=== PATIENT | female | born 1960 | race Caucasian/White ===

== ENCOUNTER 2020-06-20 09:16 | Outpatient (CLI) | payer OTHER, SELFPAY ==
--- NOTE | ~2020-06-20 | DEXA_ITS ---
Bone Density Report Name: Geovanna Mccarthy Age: 60 Sex: Female Ethnicity: White Date of : 1960 Indication: postmenopausal; hysterectomy; Referring Provider: Alex, Constanza Collado Study: Bone densitometry was performed. Exam Date: June 20, 2020 Accession number: [id number] Bone Density: Region BMD T-score Z-score Classification AP Spine (L1, L3, L4) 0.851 -1.8 -0.2 Osteopenia Femoral Neck (Left) 0.578 -2.4 -1.1 Osteopenia Total Hip (Left) 0.735 -1.7 -0.6 Osteopenia Total Hip Bilateral Avg 0.728 -1.8 -0.7 Osteopenia Femoral Neck (Right) 0.539 -2.8 -1.4 Osteoporosis Total Hip (Right) 0.720 -1.8 -0.7 Osteopenia World Health Organization criteria for BMD impression classify patients as: Normal (T-score at or above -1.0), Osteopenia (T-score between -1.0 and -2.5), or Osteoporosis (T-score at or below -2.5). 10-year Fracture Risk: FRAX not reported because: Some T-score for Spine Total or Hip Total or Femoral Neck at or below -2.5 Previous Exams: Region Exam Age BMD T-score BMD Change BMD Change Date g/cm2 vs Baseline vs Previous AP Spine(L1, L3, L4) 06/20/2020 60 0.851 -1.8 -0.029(-3.3%)# -0.142(-14.3%) 08/12/2016 56 0.993 -0.5 0.112(12.7%)# -0.014(-1.4%)# 07/12/2010 50 1.007 -0.4 0.126(14.4%)* 0.126(14.4%)* 09/27/2005 45 0.881 -1.6 Total Hip(Left) 06/20/2020 60 0.735 -1.7 -0.050(-6.3%)# -0.114(-13.4%) 08/12/2016 56 0.849 -0.8 0.064(8.2%)# -0.055(-6.1%)# 07/12/2010 50 0.904 -0.3 0.119(15.2%)* 0.119(15.2%)* 09/27/2005 45 0.785 -1.3 Total Hip(Right) 06/20/2020 60 0.720 -1.8 -0.056(-7.3%)# -0.128(-15.1%) 08/12/2016 56 0.848 -0.8 0.072(9.2%)# -0.013(-1.5%)# 07/12/2010 50 0.861 -0.7 0.085(10.9%)* 0.085(10.9%)* 09/27/2005 45 0.777 -1.4 *Denotes significance at 95% confidence level, LSC for AP Spine = 0.022 g/cm2, LSC for Total Hip = 0.027 g/cm2 Clinical Information Provided by Patient: Has the following medical conditions: Hysterectomy Patient maximum height was 61.5 No regular weight bearing exercise Does not regularly consume dairy products Drinks caffeinated beverages Onset of menses at age 9 Number of children 2 Impression: The patient has osteoporosis, based on the Right Femoral Neck T-score. The BMD for the AP Spine(L1, L3, L4) decreased, changing by -14.3% since the last DXA exam. The BMD for the Total Hip(Left) decreased, changing by -13.4% since the last DXA exam. The
--- NOTE | ~2020-06-20 | MM_ITS ---
EXAMINATION: MM screening barbara BI w armando HISTORY: Screening TECHNIQUE: Craniocaudal and mediolateral oblique 3-D tomosynthesis images were obtained and synthetic 2-D images were generated. CAD analysis was submitted and interpreted. COMPARISON: Comparison to multiple prior studies sequentially, with oldest reviewed study dated 07/11. BREAST PARENCHYMAL COMPOSITION: There are scattered areas of fibroglandular density. FINDINGS: There is no evidence of suspicious mass, calcification, or architectural distortion to sugg est malignancy in either breast. There has been no suspicious interval change. IMPRESSION: 1. No mammographic evidence of malignancy. 2. Recommend routine screening mammography in one year. BI-RADS Category 1: Negative Reviewed, dictated and finalized at location A. IAL EDUCATION CLASSROOM AIDE
== END 2020-06-20 09:17 | disposition home or self-care (01) ==
LOC: ANHIMG 09:20
PROVIDERS: PCP Nurse Practitioner Family; Visit Provider Nurse Practitioner Family
DX: Z12.31 Encounter for screening mammogram for malignant neoplasm of breast (principal); Z78.0 Asymptomatic menopausal state; M85.88 Other specified disorders of bone density and structure, other site; M85.852 Other specified disorders of bone density and structure, left thigh; M85.851 Other specified disorders of bone density and structure, right thigh; M81.0 Age-related osteoporosis without current pathological fracture
CPT/HCPCS: 77063; 77067; 77080

== ENCOUNTER 2021-09-27 01:50 | Day surgery (SDC) | payer OTHER, SELFPAY ==
[2021-09-22 15:58] VITALS: BMI 23.5
[2021-09-27 08:33] VITALS: BP 129/80; PULSE 73; RESP 16; TEMP 35.8; O2SAT 100; BMI 23.3
[2021-09-27] MEDS: LACTATED RINGERS 1,000 ML 150 ML IV CONT (08:41)
--- NOTE | 2021-09-27 08:59 | WPDGICN ---
Assessment and Plan Assessment and plan (1) Encounter for screening colonoscopy: Code(s): Z12.11 - Encounter for screening for malignant neoplasm of colon Status: Acute Assessment and Plan: Patient presents for screening colonoscopy. Last colonoscopy 10 years ago was unremarkable. Plan is for surveillance exam at this time. Further recommendations will be given after endoscopy. GI Consult Note Consult date/time: 09/27/21 08:59 HPI: Geovanna Mccarthy is a 61 year old female Presents for screening colonoscopy. Patient's current weight appetite bowel movements are normal. She denies abdominal pain. She has had no bleeding. Patient reports last colonoscopy 10 years ago was unremarkable. Family history is significant her brother has had colon polyps. Review of Systems Review of Systems: All systems reviewed & are unremarkable except as noted in HPI and below PMFSH Past Medical History Medical History (Updated 09/27/21 @ 09:00 by Seb Canales MD) Anxiety CAD (coronary artery disease) History of cardioversion History of heart attack Hyperlipidemia Hypertension Surgical History Surgical History (Updated 09/24/21 @ 15:41 by Jesse Brooks DO) History of coronary artery stent placement x2 History of hysterectomy Social History Social History Smoking packs per day: 1.5 Smoking cigarettes per day: 30.0 Years smoked: 30 Smoking pack-years: 45.00 Smoking status: Former smoker Tobacco type: cigarettes Alcohol intake: current Drinks per week: 14 Alcohol use details: WINE Substance use: never Substance use type: does not use Living arrangements: with family Spiritual care concerns: No Meds Home Medications and Allergies Home Medications Medication Instructions Recorded Confirmed Type alendronate 70 mg PO WEEKLY 09/22/21 09/27/21 History amlodipine 10 mg PO DAILY 09/22/21 09/22/21 History aspirin [Adult Aspirin] 81 mg PO DAILY 09/22/21 09/27/21 History atorvastatin 80 mg PO DAILY 09/22/21 09/27/21 History estradiol 1 appful VAGINAL WEEKLY 09/22/21 09/27/21 History lorazepam 0.5 mg PO BID PRN 09/22/21 09/27/21 History nitroglycerin 0.4 mg SUBLINGUAL PRN PRN 09/22/21 09/27/21 History Allergies Allergy/AdvReac Type Severity Reaction Status Date / Time No Known Allergies Allergy Mild Verified 09/22/21 16:00 Vital Signs Vital Signs - 24 hr 09/27/21 08:33 Temperature 96.4 F L Pulse Rate 73 Respiratory Rate 16 Blood Pressure 129/80 Pulse Oximetry 100 Exam Narrative: Physical exam reveals patient to be alert. Vital signs stable. HEENT exam is unremarkable. Patient is anicteric. Lungs are clear to auscultation and percussion. Heart is without murmur or extra sounds. Abdominal exam bowel sounds are present soft nontender with no organomegaly. Digital external rectal exam is normal.
--- NOTE | 2021-09-27 09:00 | P.PNAN_ITS ---
Anes - Initial Pre Proc Eval Procedure: Operation Date: 09/27/21 09:30 Proposed Procedures p Screening Colonoscopy - Seb Canales MD Date/Time: 09/27/21 09:00 Surgeon: Seb Canales MD Pre Op Diagnosis: neoplasm screening Patient Data Age: 61 Gender: F Height: 1.55 m Weight: 55.9 kg Last Vital Signs Temp 96.4 F L 09/27/21 08:33 Pulse 73 09/27/21 08:33 Resp 16 09/27/21 08:33 BP 129/80 09/27/21 08:33 Pulse Ox 100 09/27/21 08:33 Allergies Allergy/AdvReac Type Severity Reaction Status Date / Time No Known Allergies Allergy Mild Verified 09/22/21 16:00 Home Medications Medication Instructions Recorded Confirmed Type alendronate 70 mg PO WEEKLY 09/22/21 09/27/21 History amlodipine 10 mg PO DAILY 09/22/21 09/22/21 History aspirin [Adult Aspirin] 81 mg PO DAILY 09/22/21 09/27/21 History atorvastatin 80 mg PO DAILY 09/22/21 09/27/21 History estradiol 1 appful VAGINAL WEEKLY 09/22/21 09/27/21 History lorazepam 0.5 mg PO BID PRN 09/22/21 09/27/21 History nitroglycerin 0.4 mg SUBLINGUAL PRN PRN 09/22/21 09/27/21 History Patient hx anesthesia problems: none Family hx anesthesia problems: none Results Review: All pre-operative results and documents have been reviewed as part of the pre-operative evaluation. [facility] Past Medical History Medical History (Updated 09/24/21 @ 15:41 by Jesse Brooks DO) Anxiety CAD (coronary artery disease) History of cardioversion History of heart attack Hyperlipidemia Hypertension Surgical History Surgical History (Updated 09/24/21 @ 15:41 by Jesse Brooks DO) History of coronary artery stent placement x2 History of hysterectomy Social History Social History Smoking packs per day: 1.5 Smoking cigarettes per day: 30.0 Years smoked: 30 Smoking pack-years: 45.00 Smoking status: Former smoker Tobacco type: cigarettes Alcohol intake: current Drinks per week: 14 Alcohol use details: WINE Substance use: never Substance use type: does not use Living arrangements: with family Spiritual care concerns: No Anes - Eval Final PreProcedure Day of Procedure 09/27/21 09:00 Patient weight: normal Heart: regular rate and rhythm Lungs: clear to auscultation Airway: Mallampati scale class II Neurological: alert and oriented Last oral intake: >/= 8 hours ASA classification: III Emergent: no Anesthetic plan: proceed Anesthesia type and monitoring: general GIVS and standard monitoring Results Review: All pre-operative results and documents have been reviewed as part of the pre-operative evaluation. Informed Consent: The patient's anesthetic plan and its attendant risks and benefits were discussed with the patient/family/POA. Questions were solicited and answers provided to the satisfaction of the patient/family/POA.
[2021-09-27 09:23] VITALS: BP 101/65; PULSE 63; RESP 21; O2SAT 100
[2021-09-27 09:33] VITALS: BP 120/73; PULSE 65; RESP 18; O2SAT 100
[2021-09-27 09:43] VITALS: BP 132/78; PULSE 63; RESP 20; O2SAT 100
== END 2021-09-27 09:57 | disposition home or self-care (01) ==
PROVIDERS: PCP Nurse Practitioner Family; Visit Provider Internal Medicine Gastroenterology
PROC: 0DJD8ZZ Inspection of Lower Intestinal Tract, Via Natural or Artificial Opening Endoscopic (ICD-10-PCS; CPT 45378; principal; 2021-09-27 09:30)
DX: Z12.11 Encounter for screening for malignant neoplasm of colon (principal); F41.9 Anxiety disorder, unspecified; I25.10 Atherosclerotic heart disease of native coronary artery without angina pectoris; E78.2 Mixed hyperlipidemia; I10 Essential (primary) hypertension; I25.2 Old myocardial infarction; Z95.5 Presence of coronary angioplasty implant and graft; Z87.891 Personal history of nicotine dependence
CPT/HCPCS: 45378; J2704; J7120

== ENCOUNTER 2023-01-28 07:47 | Outpatient (CLI) | payer OTHER, SELFPAY ==
--- NOTE | ~2023-01-28 | MM_ITS ---
EXAMINATION: MM screening barbara BI w armando HISTORY: Screening mammogram TECHNIQUE: Craniocaudal and mediolateral oblique 3-D tomosynthesis images were obtained and synthetic 2-D images were generated. CAD analysis was submitted and interpreted. COMPARISON: 06/20/2020, 04/20/2019 bilateral screening mammogram examinations BREAST PARENCHYMAL COMPOSITION: There are scattered areas of fibroglandular density. FINDINGS: There is no evidence of suspicious mass, calcification, or architectural distortion to sugg est malignancy in either breast. There has been no suspicious interval change. IMPRESSION: 1. No mammographic evidence of malignancy. 2. Recommend routine screening mammography in one year. BI-RADS Category 1: Negative Reviewed, dictated and finalized at location A.
== END 2023-01-28 07:48 | disposition home or self-care (01) ==
LOC: ANHIMG 07:50
PROVIDERS: PCP Nurse Practitioner Family; Visit Provider Nurse Practitioner Family
DX: Z12.31 Encounter for screening mammogram for malignant neoplasm of breast (principal)
CPT/HCPCS: 77063; 77067

== ENCOUNTER 2024-09-11 14:50 | Outpatient (CLI) | payer MEDICARE, SELFPAY ==
--- NOTE | ~2024-09-11 | MM_ITS ---
EXAMINATION: MM screening barbara BI w [facility] HISTORY: Screening TECHNIQUE: Craniocaudal and mediolateral oblique 3-D tomosynthesis images were obtained and synthetic 2-D images were generated. CAD analysis was submitted and interpreted. COMPARISON: Comparison to multiple prior studies sequentially, with oldest reviewed study dated 01/10. BREAST PARENCHYMAL COMPOSITION: Not dense: There are scattered areas of fibroglandular density. FINDINGS: There is no evidence of suspicious mass, calcification, or architectural distortion to sugg est malignancy in either breast. There has been no suspicious interval change. IMPRESSION: 1. No mammographic evidence of malignancy. 2. Recommend routine screening mammography in one year. BI-RADS Category 1: Negative Reviewed, dictated and finalized at location B.
--- NOTE | ~2024-09-11 | DEXA_ITS ---
Bone Density Report Name: BRANDT SAINZ Age: 64 Sex: Female Ethnicity: White Date of : 1960 Indication: osteopenia; monitoring treatment; hysterectomy; Referring Provider: JORGE A CALDERON Study: Bone densitometry was performed. Exam Date: September 11, 2024 Accession number: [id number] Bone Density: Region BMD T-score Z-score Classification AP Spine(L1-L4) 0.975 -0.7 1.2 Normal Femoral Neck (Left) 0.606 -2.2 -0.6 Osteopenia Total Hip (Left) 0.811 -1.1 0.2 Osteopenia Femoral Neck (Right) 0.573 -2.5 -0.9 Osteoporosis Total Hip (Right) 0.787 -1.3 0.0 Osteopenia Total Hip Mean 0.799 -1.2 0.1 Osteopenia World Health Organization criteria for BMD impression classify patients as: Normal (T-score at or above -1.0), Osteopenia (T-score between -1.0 and -2.5), or Osteoporosis (T-score at or below -2.5). 10-year Fracture Risk: FRAX not reported because: Some T-score for Spine Total or Hip Total or Femoral Neck at or below -2.5 Treated for osteoporosis Previous Exams: Region Exam Age BMD T-score BMD Change BMD Change Date g/cm2 vs Baseline vs Previous Total Hip(Left) 09/11/2024 64 0.811 -1.1 -0.038 (-4.5%) 0.076 (10.3%)* 06/20/2020 60 0.735 -1.7 -0.114 (-13.4% -0.114 (-13.4% 08/12/2016 56 0.849 -0.8 Total Hip(Right) 09/11/2024 64 0.787 -1.3 -0.062 (-7.3%) 0.066 (9.2%)* 06/20/2020 60 0.720 -1.8 -0.128 (-15.1% -0.128 (-15.1% 08/12/2016 56 0.848 -0.8 *Denotes significance at 95% confidence level, LSC for Total Hip = 0.027 g/cm2 Clinical Information Provided by Patient: Is being treated for osteoporosis Has used the following medications: Reclast (i.e. zoledronate) Has the following medical conditions: Hysterectomy Patient maximum height was 61.5 No regular weight bearing exercise Does not regularly consume dairy products Drinks caffeinated beverages Onset of menses at age 11 Number of children 2 Impression: The patient has osteoporosis, based on the Right Femoral Neck T-score. No significant bone loss was observed. Discussion: PATIENT UNDER TREATMENT WITH NO SIGNIFICANT BMD LOSS SINCE LAST EXAM. In an untreated patient, BMD typically declines with age. A lack of decline or gain is usually a sign that treatment is efficacious and fracture risk is reduced. It is important to ask patients whether they are taking their medications and to encourage continued and appropriate compliance with their osteoporosis therapies to reduce fracture risk. It is also important to review their risk factors and encourage appropriate calcium and vitamin D intakes, exercise, fall prevention and other lifestyle measures. Follow-Up: Consider a repeat BMD and Vertebral Fracture Assessment (VFA) exam in 2 years or sooner if medically necessary, to reassess this patient's status. Reported by: NORRIS on 09/11/2024 3:28:00 PM. Reviewed, dictated and finalized at location AYoung VO
--- OUTSIDE RECORDS SUMMARY | 2024-09-11 16:07 | XMS_ITS | Encounter Summary ---
Author Organization [facility] Facility Care Team Providers Care Restaurant Shift Leader Name Role Phone Kathya De La Rosa MD Primary Care Provider [phone] Michael Browning MD Unavailable [phone] Constanza Johnson NP Primary Care Provider + Encounter Details Date Type Department Care Team (Latest Contact Info) Description 02/26/2015 Orders Only [facility] CLINCONV ProviderYamel MD [address] [place] [address] Social History Tobacco Use Types Packs/Day Years Used Date Smoking Tobacco: Never Assessed Comments Unknown Sex and Gender Information Value Date Recorded Sex Assigned at Not on file Legal Sex Female 1:14 AM PINKED EDGE SEWING MACHINE OPERATOR Gender Identity Not on file Sexual Orientation Not on file documented as of this encounter Plan of Treatment Not on file documented as of this encounter Procedures Procedure Name Priority Date/Time Associated Diagnosis Comments CARDIOLOGY REPORT 06/23/2016 12: 00 AM PINKED EDGE SEWING MACHINE OPERATOR CARDIOLOGY REPORT 06/23/2016 12: 00 AM PINKED EDGE SEWING MACHINE OPERATOR documented in this encounter Results * CARDIOLOGY REPORT (06/23/2016 12:00 AM PINKED EDGE SEWING MACHINE OPERATOR) Anatomical Region Laterality Modality Other Narrative 06/23/2016 12:00 AM PINKED EDGE SEWING MACHINE OPERATOR Ordered by an unspecified provider. Historical Provider [facility] Final Result * CARDIOLOGY REPORT (06/23/2016 12:00 AM PINKED EDGE SEWING MACHINE OPERATOR) Anatomical Region Laterality Modality Other Narrative 06/23/2016 12:00 AM PINKED EDGE SEWING MACHINE OPERATOR Ordered by an unspecified provider. us Historical Provider [facility] Final Result documented in this encounter Visit Diagnoses Not on filedocumented in this encounter Care Teams Restaurant Shift Leader Relationship Specialty Start Date End Date Kathya De La Rosa MD [address] [place] [address] PCP - General 05/28/09 09/15/21 Constanza Johnson NP [address] [place] [address] [id number] PCP - General Nurse Practitioner 09/16/21 Michael rBowning MD [address] [place] [address] [id number] Consulting Physician Cardiovascular Disease 04/15/19 documented as of this encounter
--- OUTSIDE RECORDS SUMMARY | 2024-09-11 16:07 | XMS_ITS | CONTINUITY OF CARE DOCUMENT ---
Author Name kaylee page Address Unknown Organization [facility] Office Address [address] [place] [address] [address] [place] [address] Phone [phone] Care Team Providers Care Stone Engraver Name Role Phone Zhao CHAVEZ, Byron Unavailable [phone] MELISSA SERRATO Unavailable INSURANCE PROVIDERS Payer name Policy type / Coverage type [place] red green party ID [facility] [id number] Other [id number]
--- OUTSIDE RECORDS SUMMARY | 2024-09-11 16:07 | XMS_ITS | Encounter Summary ---
Author Organization [facility] Care Team Providers Care Chief Radiologic Technologist Name Role Phone Kathya De La Rosa MD Primary Care Provider [phone] Michael Browning MD Unavailable [phone] Constanza Johnson NP Primary Care Provider + Encounter Details Date Type Department Care Team (Latest Contact Info) Description 03/01/2015 Orders Only [facility] CLINCONV ProviderYamel MD [address] [place] [address] Social History Tobacco Use Types Packs/Day Years Used Date Smoking Tobacco: Never Assessed Comments Unknown Sex and Gender Information Value Date Recorded Sex Assigned at Not on file Legal Sex Female 1:14 AM MEMS DEVICE SCIENTIST Gender Identity Not on file Sexual Orientation Not on file documented as of this encounter Plan of Treatment Not on file documented as of this encounter Procedures Procedure Name Priority Date/Time Associated Diagnosis Comments CARDIOLOGY REPORT 06/23/2016 12: 00 AM MEMS DEVICE SCIENTIST documented in this encounter Results * CARDIOLOGY REPORT (06/23/2016 12:00 AM MEMS DEVICE SCIENTIST) Anatomical Region Laterality Modality Other Narrative 06/23/2016 12:00 AM MEMS DEVICE SCIENTIST Ordered by an unspecified provider. Historical Provider [facility] Final Result documented in this encounter Visit Diagnoses Not on filedocumented in this encounter Care Teams Chief Radiologic Technologist Relationship Specialty Start Date End Date Kathya De La Rosa MD [address] [address] PCP - General 05/28/09 09/15/21 Constanza Johnson NP [address] [address] PCP - General Nurse Practitioner 09/16/21 Michael Browning MD [address] [address] Consulting Physician Cardiovascular Disease 04/15/19 documented as of this encounter
--- OUTSIDE RECORDS SUMMARY | 2024-09-11 16:07 | XMS_ITS | Encounter Summary ---
Author Organization [facility] Facility Care Team Providers Care Salesperson Neckties Name Role Phone Kathya De La Rosa MD Primary Care Provider [phone] Michael Browning MD Unavailable [phone] Constanza Johnson NP Primary Care Provider + Encounter Details Date Type Department Care Team (Latest Contact Info) Description 02/27/2015 Orders Only [facility]G CLINCONV ProviderYamel MD [address] [place] [address] Social History Tobacco Use Types Packs/Day Years Used Date Smoking Tobacco: Never Assessed Comments Unknown Sex and Gender Information Value Date Recorded Sex Assigned at Not on file Legal Sex Female 1:14 AM AUTO CLEANER Gender Identity Not on file Sexual Orientation Not on file documented as of this encounter Plan of Treatment Not on file documented as of this encounter Procedures Procedure Name Priority Date/Time Associated Diagnosis Comments CARDIOLOGY REPORT 06/23/2016 12: 00 AM AUTO CLEANER documented in this encounter Results * CARDIOLOGY REPORT (06/23/2016 12:00 AM AUTO CLEANER) Anatomical Region Laterality Modality Other Narrative 06/23/2016 12:00 AM AUTO CLEANER Ordered by an unspecified provider. Historical Provider [facility] Final Result documented in this encounter Visit Diagnoses Not on filedocumented in this encounter Care Teams Salesperson Neckties Relationship Specialty Start Date End Date Kathya De La Rosa MD [address] [address] PCP - General 05/28/09 09/15/21 Constanza Johnson NP [address] [address] PCP - General Nurse Practitioner 09/16/21 Michael Browning MD [address] [address] Consulting Physician Cardiovascular Disease 04/15/19 documented as of this encounter
--- OUTSIDE RECORDS SUMMARY | 2024-09-11 16:07 | XMS_ITS | Encounter Summary ---
Author Organization [facility] Facility Care Team Providers Care Inspector Government Property Name Role Phone Kathya De La Rosa MD Primary Care Provider [phone] Michael Browning MD Unavailable [phone] Constanza Johnson NP Primary Care Provider + Encounter Details Date Type Department Care Team (Latest Contact Info) Description 03/26/2015 Orders Only [facility] CLINCONV ProviderYamel MD [address] [place] [address] Social History Tobacco Use Types Packs/Day Years Used Date Smoking Tobacco: Never Assessed Comments Unknown Sex and Gender Information Value Date Recorded Sex Assigned at Not on file Legal Sex Female 1:14 AM BARK FITTER Gender Identity Not on file Sexual Orientation Not on file documented as of this encounter Plan of Treatment Not on file documented as of this encounter Procedures Procedure Name Priority Date/Time Associated Diagnosis Comments CARDIOLOGY REPORT 06/23/2016 12: 00 AM BARK FITTER documented in this encounter Results * CARDIOLOGY REPORT (06/23/2016 12:00 AM BARK FITTER) Anatomical Region Laterality Modality Other Narrative 06/23/2016 12:00 AM BARK FITTER Ordered by an unspecified provider. Historical Provider [facility] Final Result documented in this encounter Visit Diagnoses Not on filedocumented in this encounter Care Teams Inspector Government Property Relationship Specialty Start Date End Date Kathya De La Rosa MD [address] [address] PCP - General 05/28/09 09/15/21 Constanza Johnson NP [address] [address] PCP - General Nurse Practitioner 09/16/21 Michael Browning MD [address] [address] Consulting Physician Cardiovascular Disease 04/15/19 documented as of this encounter
--- OUTSIDE RECORDS SUMMARY | 2024-09-11 16:07 | XMS_ITS | Clinical Summary ---
Author Organization [facility] at [facility] Office Center Address [address] [place] [address] Care Team Providers Care Healthcare Consulting Manager Name Role Phone Michael Browning MD Unavailable [phone] Constanza Johnson NP Primary Care Provider + Allergies No known active allergies Medications LORazepam (ATIVAN) 0.5 mg tablet TK 1 T PO BID PRN ONLY 0 09/03/2018 Active aspirin 81 mg enteric coated tablet Take 1 tablet (81 mg total) by mouth daily Active alendronate (FOSAMAX) 70 mg tablet Take 1 tablet (70 mg total) by mouth every 7 days Take in the morning with a full glass of water, on an empty stomach, and do not take anything else by mouth or lie down for the next 30 min. Active amLODIPine (NORVASC) 10 mg tablet TAKE 1 TABLET DAILY 90 tablet 1 07/26/2021 Active rosuvastatin (CRESTOR) 40 mg tablet Take 1 tablet (40 mg total) by mouth daily Active nitroglycerin (NITROSTAT) 0.[address] 1 tablet (0.4 mg total) under the tongue every 5 (five) minutes as needed for chest pain 25 tablet 04/17/2024 Active Active Problems Problem Noted Date Diagnosed Date Varicose veins of leg with pain, right Assessment & Plan (10/12/2023 1:47 PM CDT): Status post right GSV ablation and stab phlebectomies, doing well since procedure. No evidence of deep vein thrombosis. Can follow up as needed. I have recommended p.r.n. compression therapy. Acute sinusitis 08/02/2023 Dehydration 08/02/2023 Disorder of tongue 08/02/2023 Excessive cerumen in ear canal 08/02/2023 Menopausal syndrome 08/02/2023 Sprain of ankle 08/02/2023 Vitamin B deficiency 08/02/2023 History of myocardial infarction 05/15/2023 Loss of hair 05/15/2023 Varicose veins of both lower extremities with pa in 03/23/2023 Assessment & Plan (08/04/2023 11:57 AM MINES INSPECTOR): Plan for right EVLT with stab phlebectomies. Discussed the procedure with the patient answered all questions at this time. Discussed all the potential risks associated. She is agreeable wishes to proceed. Assessment & Plan (03/23/2023 2:11 PM CDT): Impression: Patient complains of throbbing, heaviness, and fatigue to bilateral lower extremities associated with varicose veins. She denies any open ulcerations or symptoms suggestive of claudication. And has bulky varicosities to bilateral lower extremities. Patient does not utilize compression therapy at this time. Plan: Recommend for grade compression stockings 20 30 mmHg. Prescription given to patient. -we will have patient follow-up in 2 months for re-evaluation with bilateral venous reflux in our [place] office. Muscle pain 03/14/2023 Nasal congestion 03/14/2023 Hyperkalemia 09/20/2022 Lesion of oral mucosa 08/04/2022 Upper respiratory infection 08/04/2022 Acute urinary tract infection 03/14/2022 Dysuria 10/15/2020 Chest pain 09/29/2020 Osteoporosis 06/22/2020 Anxiety 08/15/2019 SVT (supraventricular tachycardia) 07/30/2019 Assessment & Plan (09/24/2020 3:50 PM CDT): Remotely successfully ablated Assessment & Plan (07/30/2019 3:12 PM MINES INSPECTOR): Remotely ablated no evidence of recurrence. Mixed hyperlipidemia 07/30/2019 Assessment & Plan (03/23/2023 2:12 PM CDT): Impression: Chronic stable. Plan: Continue Lipitor Assessment & Plan (09/24/2020 3:50 PM CDT): No recent lipid panels. Will check with primary. May be a candidate for Repatha Assessment & Plan (07/30/2019 3:12 PM MINES INSPECTOR): Continue atorvastatin. Essential hypertension 07/30/2019 Assessment & Plan (03/23/2023 2:12 PM CDT): Impression: Chronic stable. Plan: Continue amlodipine Assessment & Plan (09/24/2020 3:50 PM CDT): Well controlled Assessment & Plan (07/30/2019 3:13 PM MINES INSPECTOR): States taking meds. Will increase amlodipine to 10 mg daily. 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 If remain high will make additional adjustments. Will get outside labs. Coronary artery disease of n ative artery of [place] heart with stable angina pectoris 07/30/2019 Assessment & Plan (09/24/2020 3:49 PM CDT): No signs of new problems. Continue aspirin Brilinta blood pressure control and Lipitor Assessment & Plan (07/30/2019 3:12 PM MINES INSPECTOR): Continues to will do well. Continue aspirin and Brilinta and Imdur. Thumb pain 02/23/2018 Osteopenia 01/25/2018 History of total hysterectomy 01/09/2018 Coronary angioplasty status 07/13/2016 Non compliance w medication regimen 01/27/2016 Immunizations Immunization Administration Dates Next Due Tdap 11/27/2020 Surgical History Surgery Date Site/Laterality Comments CHOLECYSTECTOMY HYSTERECTOMY SECTION PLASTIC SURGERY CARDIAC ELECTROPHYSIOLOGY ST UDY AND ABLATION 05/29/2014 - 05/28/2015 Medical History Medical History Date Comments Benign essential HTN Hyperlipidemia Heart attack (HCC) SVT (supraventricular tachycardia) CAD (coronary artery disease) Osteoporosis Social History Tobacco Use Types Packs/Day Years Used Date Smoking Tobacco: Former Smokeless Tobacco: Never Tobacco Cessation:Counseling Given: Not Answered Comments Unknown Sex and Gender Information Value Date Recorded Sex Assigned at Not on file Legal Sex Female 1:14 AM MINES INSPECTOR Gender Identity Not on file Sexual Orientation Not on file Obstetrics History Last Filed Vital Signs Vital Sign Reading Time Taken Comments Blood Pressure 118/72 04/17/2024 3:57 PM MINES INSPECTOR Pulse 71 04/17/2024 3:57 PM MINES INSPECTOR Temperature 36.3 C (97.3 F) 09/24/2020 3:30 PM CDT Respiratory Rate - - Oxygen Saturation 99% 04/17/2024 3:57 PM MINES INSPECTOR Inhaled Oxygen Concentration - - Weight 59.5 kg (131 lb 3.2 oz) 04/17/2024 3:57 P M MINES INSPECTOR Height 154.9 cm (5' 0.98 ) 04/17/2024 3:57 PM CS T Body Mass Index 24.8 04/17/2024 3:57 PM MINES INSPECTOR Plan of Treatment Health Maintenance Due Date Last Done Comments Breast Cancer Screening-Mammogram 1958 Colon Cancer Screening-Colonoscopy 1958 Depression Screening 1958 Fall Risk Assessment 1958 Hepatitis C Screening 1958 Osteoporosis Screening-Bone Density Scan 1958 Hepatitis B Screening 1976 Pneumococcal vaccine 65+ (1 of 2 - PCV) 1977 Zoster Vaccine (1 of 2) 2008 Well Visit 65+ 2023 Covid-19 Vaccine ( season) 2024, 01/22/2021 Influenza Vaccine (#1) 2024 DTaP/Tdap/Td Vaccine (2 - Td or Tdap) 11/27/203006/2020 Insurance [facility] MEDICARE ADVANTAGE Care Teams Healthcare Consulting Manager Relationship Specialty Start Date End Date Constanza Johnson NP PCP - General Nurse Practitioner 09/16/21 Michael Browning MD Consulting Physician Cardiovascular Disease 04/15/19
--- OUTSIDE RECORDS SUMMARY | 2024-09-11 16:07 | XMS_ITS | Referral Summary ---
Author Organization [facility] at [facility] Office Center Address [address] [place] [address] Care Team Providers Care Architect In Training Name Role Phone Michael Browning MD Unavailable [phone] Constanza Johnson NP Primary Care Provider + [...] 03/23/2023 Assessment & Plan (08/04/2023 11:57 AM BLENDING TANK TENDER HELPER): Plan for right EVLT with stab phlebectomies. [...] re-evaluation with bilateral venous reflux in our [place] office. Muscle pain 03/14/2023 Nasal congestion 03/14/2023 Hyperkalemia 09/20/2022 Lesion of oral mucosa 08/04/2022 Upper respiratory infection 08/04/2022 Acute urinary tract infection 03/14/2022 Dysuria 10/15/2020 Chest pain 09/29/2020 Osteoporosis 06/22/2020 Anxiety 08/15/2019 SVT (supraventricular tachycardia) 07/30/2019 Assessment & Plan (09/24/2020 3:50 PM CDT): Remotely successfully ablated Assessment & Plan (07/30/2019 3:12 PM BLENDING TANK TENDER HELPER): Remotely ablated no evidence of recurrence. Mixed hyperlipidemia 07/30/2019 Assessment & Plan (03/23/2023 2:12 PM CDT): Impression: Chronic stable. Plan: Continue Lipitor Assessment & Plan (09/24/2020 3:50 PM CDT): No recent lipid panels. Will check with primary. May be a candidate for Repatha Assessment & Plan (07/30/2019 3:12 PM BLENDING TANK TENDER HELPER): Continue atorvastatin. Essential hypertension 07/30/2019 Assessment & Plan (03/23/2023 2:12 PM CDT): Impression: Chronic stable. Plan: Continue amlodipine Assessment & Plan (09/24/2020 3:50 PM CDT): Well controlled Assessment & Plan (07/30/2019 3:13 PM BLENDING TANK TENDER HELPER): States taking meds. Will increase amlodipine to 10 mg daily. 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 If remain high will make additional adjustments. Will get outside labs. Coronary artery disease of n ative artery of [place] heart with stable angina pectoris 07/30/2019 Assessment & Plan (09/24/2020 3:49 PM CDT): No signs of new problems. Continue aspirin Brilinta blood pressure control and Lipitor Assessment & Plan (07/30/2019 3:12 PM BLENDING TANK TENDER HELPER): Continues to will do well. Continue aspirin and Brilinta and Imdur. Thumb pain 02/23/2018 Osteopenia 01/25/2018 History of total hysterectomy 01/09/2018 Coronary angioplasty status 07/13/2016 Non compliance w medication regimen 01/27/2016 Immunizations Immunization Administration Dates Next Due Tdap 11/27/2020 Social History Tobacco Use Types Packs/Day Years Used Date Smoking Tobacco: Former Smokeless Tobacco: Never Tobacco Cessation:Counseling Given: Not Answered Comments Unknown Sex and Gender Information Value Date Recorded Sex Assigned at Not on file Legal Sex Female 1:14 AM BLENDING TANK TENDER HELPER Gender Identity Not on file Sexual Orientation Not on file Last Filed Vital Signs Vital Sign Reading Time Taken Comments Blood Pressure 118/72 04/17/2024 3:57 PM BLENDING TANK TENDER HELPER Pulse 71 04/17/2024 3:57 PM BLENDING TANK TENDER HELPER Temperature 36.3 C (97.3 F) 09/24/2020 3:30 PM CDT Respiratory Rate - - Oxygen Saturation 99% 04/17/2024 3:57 PM BLENDING TANK TENDER HELPER Inhaled Oxygen Concentration - - Weight 59.5 kg (131 lb 3.2 oz) 04/17/2024 3:57 P M BLENDING TANK TENDER HELPER Height 154.9 cm (5' 0.98 ) 04/17/2024 3:57 PM CS T Body Mass Index 24.8 04/17/2024 3:57 PM BLENDING TANK TENDER HELPER Plan of Treatment Not on file Insurance [facility] MEDICARE ADVANTAGE Care Teams Architect In Training Relationship Specialty Start Date End Date Constanza Johnson NP PCP - General Nurse Practitioner 09/16/21 Michael Browning MD Consulting Physician Cardiovascular Disease 04/15/19
--- OUTSIDE RECORDS SUMMARY | 2024-09-11 16:07 | XMS_ITS | Data Portability ---
Author Organization [facility], Main Office Address [address] [place] [address] Care Team Providers Care Technical Business Systems Analyst Name Role Phone DWAYNE MEJIA Network Intelligence Analyst Assessment Encounter Date Assessment Date Assessment LastModified by Organization Details LastModified Time 03/14/2023 03/14/2023 D/w pt about her findings and further plan of care. Meds as directed. OTC symptomatic Rx explained in detail. Very good liquid intake explained. Proper hand hygiene explained. Educated about alarming symptoms to monitor at home and call us back Or get checked in ED if any concerns. F/u as directed. [email or web address] Not available 03/14/2023 14:08:39 Plan of Treatment Reminders Order Date Submit Date Provider Last Modified By Organization Details Last Modified Time Details Appointments None recorded. Lab TSH, serum or plasma [address] (Lab), [address] [place], [address], 3 08:40:39 rapid flu (A+B) 2022 023 [facility], [address] [facility], [place], [address], 3 08:26:04 drug screen, urine 2022 023 [facility] (Lab), [address] [place], [address], 3 11:39:25 Referral vascular surgeon referral - Right lower leg worse than left leg 2022 023 Dwayne Mejia, [address] [facility] [address], [place], [address], 3 18:31:12 Procedures None recorded. Surgeries None recorded. Imaging None recorded. Medication Orders amlodipine 10 mg tablet 2022 023 [facility][id number], [address] [place], [place], [id number], 3 16:05:26 prednisone 10 mg tablet 2022 023 [facility][id number], [address] [place], [place], [id number], 3 15:40:55 amlodipine 10 mg tablet 2022 023 [facility], [address] [place] [address], [address], 3 16:34:12 amlodipine 10 mg tablet 2022 023 [email or web address], [address] [place] [address], [address], 3 14:59:49 Patient TargetsNo targets recorded. Patient Instructions Encounter Date Encounter Id Patient Instructions Last Modified By Organization Details Last Modified Time 11/15/2022 [id number] mo fu htn, anxiety, osteoporosis, lipid, vit d def, varicose veins in leg. Not available 11/15/2022 16:45:13 05/16/2023 [id number] FU with new provider prn. 05/16/23 pt aware of sandra departure. Not available 05/16/2023 16:06:31 Reason for Referral Vascular Surgeon Referral fo r Varicose veins of lower extremity Right lower leg worse than left leg Referring Physician: Constanza Johnson, Family Medicine, Encounter Date: 11/15/2022 Results Created Date Observation Date Name Description Value Unit Range Abnormal Flag Note LastModifiedBy Organization Detail LastModifiedTime 10/16/19 23 10/16/2022 LIPID PANEL , STAND MEET cholesterol, total 185 mg/dL <200 normal Not Available [address] [address] [place], [address], 10/16/2022 10:08:34 10/16/19 23 10/16/2022 LIPID PANEL , STAND MEET HDL cholesterol 87 mg/dL > or = 50 normal Not Available [facility] [address] [address] [place], [address], 10/16/2022 10:08:34 10/16/19 23 10/16/2022 LIPID PANEL , STAND MEET triglyceride s 61 mg/dL <150 normal Not Available [facility] [address] [address] [place], [address], 10/16/2022 10:08:34 10/16/19 23 10/16/2022 LIPID PANEL , STAND MEET LDL-choleste rol 84 mg/dL _(lizzette c) normal Refer ence range : <100 Ramses able range <100 mg/dL for prima ry preve ntion ; <70 mg/dL for patie nts with CHD or diabe tic patie nts with > or = 2 CHD risk facto rs. LDL-C is now calcu lated using the Evelyne n-Hop kins kaylynu diamond n, which is a valid ated novel korin sousa r accur acy than the Fried linh equat ion in the estim ation of LDL-C . Evelyne erickson SS et al. JULIETA. 2013; 310(1 9): 2061- 2068 (http ://ed ucati on.Qu Loyd Boticca. com/f aq/FA Q164) Not Available [facility] [address] [address] , [place], [address], 10/16/2022 10:08:34 10/16/19 23 10/16/2022 LIPID PANEL , STAND MEET chol/HDLC ratio 2.1 (calc ) <5.0 normal Not Available [facility] [place] [address] [place], [address], 10/16/2022 10:08:34 10/16/19 23 10/16/2022 LIPID PANEL , STAND MEET non HDL cholesterol 98 mg/dL _(lizzette c) <130 normal For patie nts with diabe heydi plus 1 major ASCVD risk facto r, treat ing to a non-H DL-C goal of <100 mg/dL (LDL- C of <70 mg/dL ) is consi dered a thera peuti c optio n. Not Available [facility] [address], [address], 10/16/2022 10:08:34 10/16/19 23 10/16/2022 BASIC METAB OLIC PANEL glucose 76 mg/dL 65-99 normal Fasti ng refer ence inter elaine Not Available [address] [address] [place], [address], 10/16/2022 10:08:35 10/16/19 23 10/16/2022 BASIC METAB OLIC PANEL urea nitrogen (BUN) 23 mg/dL 7-25 normal Not Available [address], [address], 10/16/2022 10:08:35 10/16/19 23 10/16/2022 BASIC METAB OLIC PANEL creatinine 0.76 mg/dL 0.50-1 .05 normal Not Available [address], [address], 10/16/2022 10:08:35 10/16/19 23 10/16/2022 BASIC METAB OLIC PANEL eGFR 87 mL/mi n/1.7 3m2 > or = 60 normal The eGFR is based on the CKD-E PI 2020 rob wong. To calcu late the new eGFR from a previ ous Creat inine or Cysta tin C resul t, go to https ://jose rehman.justino villatoro/pr ofess ional s/ kdoqi /gfr% 5Fcal culat or Not Available [address], [address], 10/16/2022 10:08:35 10/16/19 23 10/16/2022 BASIC METAB OLIC PANEL BUN/creatini ne ratio NOT APPLIC ABLE (calc ) 6-22 Not Available [address], [address], 10/16/2022 10:08:35 10/16/19 23 10/16/2022 BASIC METAB OLIC PANEL sodium 137 mmol/ L 135-14 6 normal Not Available [address], [address], 10/16/2022 10:08:35 10/16/19 23 10/16/2022 BASIC METAB OLIC PANEL potassium 4.8 mmol/ L 3.5-5. 3 normal Not Available [address], [address], 10/16/2022 10:08:35 10/16/19 23 10/16/2022 BASIC METAB OLIC PANEL chloride 103 mmol/ L 98-110 normal Not Available [address], [address], 10/16/2022 10:08:35 10/16/19 23 10/16/2022 BASIC METAB OLIC PANEL carbon dioxide 26 mmol/ L 20-32 normal Not Available [address], [address], 10/16/2022 10:08:35 10/16/19 23 10/16/2022 BASIC METAB OLIC PANEL calcium 9.5 mg/dL 8.6-10 .4 normal Not Available [address], [address], 10/16/2022 10:08:35 03/21/20 23 03/21/2023 rapid flu (A+B) Flu A negati ve Not Available [facility] [address] [facility], [place], [address], 03/14/2023 14:00:42 03/21/20 23 03/21/2023 rapid flu (A+B) Flu B negati ve Not Available [facility] [address] [facility], [place], [address], 03/14/2023 14:00:42 05/30/19 24 05/31/2023 TSH W/REF LINO TO FT4 TSH w/reflex to FT4 1.13 mIU/L 0.40-4 .50 normal Not Available [facility] [address] [place], [address], 05/31/2023 07:21:58 02/01/2001/28/2023 MAMMO , scree deborah, digit al, bilat eral No observ ation record ed. [email or web address] [facility] [address], [place], [address], 03/14/2023 14:08:30 Result Notes None recorded. Problems Name Problem SNOMED Code Status Onset Date Resolution Date Notes Provider Name and Address Organization Details Recorded Time Essential hypertens ion 50825207 Active 2022 Constanza Johnson NP [address], [place], [address] , [employer] [facility] 3 11:08:34 Upper respirato ry infection 09387967 Active 2022 Constanza Johnson NP [address], [address], [place], [address] , [employer] 3 11:10:34 Lesion of oral mucosa 56626209552 29[address] Active 2022 Constanza Johnson NP [address], [address], [place], [address] , [employer] [facility] 3 11:10:58 Hyperkale keisha 26653077 Active 2022 Constanza Johnson NP [address], [address], [place], [address] , [employer] [facility] 3 14:12:38 Varicose veins of lower extremity 77320058 Active 2022 Constanza Johnson NP [address], [address], [place], [address] , [employer] [facility] 3 16:41:04 Nasal congestio n 13182628 Active 2022 Peterson Santiago MD [address], [address], [place], [address] , [employer] 3 14:00:40 Muscle pain 76072056 Active 2022 Peterson Santiago MD [address], [address], [place], [address] , [employer] [facility] 3 14:20:12 Acute urinary tract infection 615940596 Active 2022 Constanza Johnson NP [address], [place], [address] , [employer] 3 13:03:29 Loss of hair 418923320 Active 2022 Constanza Johnson NP [address], [place], [address] , [employer] 3 15:56:46 History of myocardia l infarctio n 728151456 Active 2022 Constanza Johnson NP [address], [place], [address] , [employer] [facility] 3 16:05:33 Menopausa l syndrome 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 Active Not Available [facility] 3 04:34:49 Excessive cerumen in ear canal 949742019 Completed Not Available [facility] 3 04:34:49 Acute sinusitis 60853917 Completed Not Available [facility] 3 04:34:49 Wax in ear canal 075769459 Completed Not Available [facility] 3 04:34:49 Chest pain 99402893 Active 2020 Not Available [facility] 3 04:34:49 Pain in thumb 367875947 Active 2017 Not Available [facility] 3 04:34:49 Osteopeni a 309059126 Active 2017 Not Available [facility] 3 04:34:50 Dehydrati on 05991362 Completed Not Available [facility] 3 04:34:50 Hypertens estiven disorder 71275803 Active Not Available [facility] 3 04:34:50 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 Not Available [facility] 3 04:34:50 Sprain of ankle 94216363 Completed Not Available [facility] 3 04:34:50 Vitamin B deficienc y 44330296 Active Not Available [facility] 3 04:34:50 Anxiety 46766449 Active 2019 Not Available [facility] 3 04:34:50 Dysuria 57175311 Active 2020 Not Available [facility] 3 04:34:50 Upper respirato ry infection 18366934 Completed Constanza Johnson NP [address] [facility], [place], [address] , [facility] [employer] [facility] 3 11:10:35 Hyperlipi demia 87134902 Active Not Available [facility] 3 04:34:50 Osteoporo sis 57154445 Active 2020 Not Available [facility] 3 04:34:50 Urinary tract infectiou s disease 10025108 Active 2021 Not Available [facility] 3 04:34:50 Disorder of tongue 65216646 Completed Not Available [facility] 3 04:34:51 Problem Notes None recorded. Procedures Surgical History Date Name Laterality Status Provider Name and Address Organization Details Recorded Time 09/28/19 22 Date of Last Colonoscopy completed Not Available [facility] 07/27/2022 04:31:02 06/20/19 21 Most Recent Bone Density completed Constanza Balderas RN [place] [employer] 11/15/2022 16:14:51 Imaging Results Imaging Date Name Status LastModified by Organiz ation Details LastModified Time 01/28/2023 MAMMO, screening, digital, bilateral completed [id number] [facility] [address], [place], [address], 03/14/2023 14:08:30 Procedure Notes None recorded. Medical Equipment None Reported. Allergies No known drug allergies Medications Name Sig Start Date Stop Date Status Note LastModified by Organization Details LastModified Time cyclobenza dennis 10 mg tablet Take 1 tablet twice a day by oral route as needed for 10 days. active Not Available Not Available No t Available atorvastat in 80 mg tablet TAKE ONE TABLET BY MOUTH ONCE DAILY active Not Available Not Available No t Available prednisone 10 mg tablet Take 1 tablet every day by oral route as directed for 7 days. 05/16 completed Not Available Not Available Not Available paroxetine 10 mg tablet Take 1 tablet every day by oral route for 30 days. active Not Available Not Available No t Available citalopram 40 mg tablet active Not Available Not Available Not Available azithromyc in 250 mg tablet Take 2 TABLET EVERY DAY by oral route for 1 day then take 1 daily for 4 days active Not Available Not Available No t Available pravastati n 40 mg tablet TAKE ONE TABLET BY MOUTH EVERY DAY active Not Available Not Available No t Available phenazopyr idine 200 mg tablet Take 1 tablet every 8 hours by oral route as needed for 5 days. active Not Available Not Available No t Available prednisone 20 mg tablet Take 1 tablet every day by oral route. active Not Available Not Available No t Available isosorbide mononitrat e ER 30 mg tablet,ext ended release 24 hr TAKE 1 TABLET BY MOUTH DAILY 02/01 completed Not Available Not Available Not Available alendronat e 70 mg tablet TAKE 1 TABLET BY MOUTH EVERY WEEK active Not Available Not Available No t Available acetaminop hen 300 mg-codeine 30 mg tablet Take 1 tablet every 6 hours by oral route as needed. active Not Available Not Available No t Available ciprofloxa jeannine 250 mg tablet TAKE 1 TABLET BY MOUTH EVERY 12 HOURS FOR 3 DAYS 11/15 completed Not Available Not Available Not Available amlodipine 5 mg tablet TAKE ONE TABLET BY MOUTH ONCE DAILY 08/14 completed Not Available Not Available Not Available ciprofloxa jeannine 500 mg tablet Take 1 tablet every 12 hours by oral route for 5 days. active Not Available Not Available No t Available amoxicilli n 875 mg tablet 05/05 completed Not Available Not Available Not Available pravastati n 80 mg tablet TAKE ONE TABLET BY MOUTH ONCE DAILY active Not Available Not Available No t Available lorazepam 0.5 mg tablet TAKE 1 TABLET BY MOUTH TWICE DAILY NEEDED active Not Available Not Available No t Available Nitrostat 0.[address] 1 tablet as needed by sublingu al route. active PRN, hasn't needed to use any of this. Not Available Not Available Not Available amlodipine 10 mg tablet TAKE 1 TABLET BY MOUTH EVERY DAY active Not Available Not Available No t Available erythromyc in 5 mg/gram (0.5 %) eye ointment active Not Available Not Available Not Available polymyxin B sulfate 10,000 unit-trime thoprim 1 mg/mL eye drops INT 1 GTT INTO OS Q 6 H active Not Available Not Available No t Available omeprazole 20 mg capsule,de layed release Take 1 capsule every day by oral route. active Not Available Not Available No t Available estradiol 2 mg tablet TAKE ONE TABLET BY MOUTH ONCE DAILY 01/09 completed Not Available Not Available Not Available lorazepam 1 mg tablet TAKE 1/2 TABLET BY MOUTH TWICE DAILY NEEDED active Not Available Not Available No t Available estradiol 0.01% (0.1 mg/gram) vaginal cream Use topicall y every 3 days active Not Available Not Available No t Available fluticason e propionate 50 mcg/actuat ion nasal spray,susp ension active Not Available Not Available Not Available amoxicilli n 500 mg-potassi um clavulanat e 125 mg tablet TAKE 1 TABLET BY MOUTH EVERY 12 HOURS FOR 7 DAYS 06/16 completed Not Available Not Available Not Available metoprolol tartrate 25 mg tablet TAKE ONE-HALF TABLET BY MOUTH TWICE DAILY active 12.5 Not Available Not Available No t Available nitrofuran toin monohydrat e/macrocry stals 100 mg capsule TAKE 1 CAPSULE BY MOUTH TWICE DAILY FOR 10 DAYS 05/16 completed Not Available Not Available Not Available Fish Oil 1 PO QD 2015 active Not Available Not Available Not Avai lable biotin 11/15 completed Not Available Not Available Not Available Aspir-81 1 po qd 2012 active Not Available Not Available Not Avai lable Lovaza 1 gram capsule Take 2 capsules twice a day by oral route for 30 days. 07/11 completed Not Available Not Available Not Available Brilinta 90 mg tablet TAKE ONE TABLET BY MOUTH TWICE DAILY 09/01 completed Not Available Not Available Not Available Brilinta 60 mg tablet TAKE 1 TABLET TWICE A DAY DIRECTED BY CARDIOLO GIST active Not Available Not Available No t Available Vitals Date Recorded Body mass index (BMI) Body height Oxygen saturation Oxygen saturation in Arterial blood by Pulse oximetry Heart rate Respiratory rate Body temperature Body weight Systolic blood pressure Diastolic blood pressure Provider Name and Address Organization Details Last Updated DateTime 2 21.6 kg/m2 162.56 cm 98 % 98 % 84 /min 18 /min 98 [degF] 93603.6 4 g 110 mm[Hg] 70 mm[Hg] Not Available [facility] 3 04:32:37 Date Recorded Body height Body mass index (BMI) Body weight Body temperature Heart rate Oxygen saturation Oxygen saturation in Arterial blood by Pulse oximetry Systolic blood pressure Diastolic blood pressure Provider Name and Address Organization Details Last Updated DateTime 3 162.56 cm 21.8 kg/m2 29058.2 3 g 97.4 [degF] 72 /min 99 % 99 % 142 mm[Hg] 86 mm[Hg] Lacy hayes CMA [facility] [employer] [facility] 3 10:32:23 Date Recorded Body height Body mass index (BMI) Body weight Body temperature Heart rate Respiratory rate Oxygen saturation Oxygen saturation in Arterial blood by Pulse oximetry Systolic blood pressure Diastolic blood pressure Provider Name and Address Organization Details Last Updated DateTime 3 162.56 cm 21.4 kg/m2 32407.9 g 96.4 [degF] 70 /min 16 /min 95 % 95 % 128 mm[Hg] 86 mm[Hg] Constanza Balderas RN [facility] [employer] [facility] 3 16:10:39 Date Recorded Body height Body mass index (BMI) Body weight Body temperature Heart rate Respiratory rate Oxygen saturation Oxygen saturation in Arterial blood by Pulse oximetry Provider Name and Address Organization Details Last Updated DateTime 3 162.56 cm 21.8 kg/m2 11046.9 3 g 98.71 [degF] 72 /min 16 /min 98 % 98 % Asim Pinon [facility] [employer] [facility] 3 14:07:50 Date Recorded Systolic blood pressure Diastolic blood pressure Provider Name and Address Organization Details Last Updated DateTime 03/14/2023 132 mm[Hg] 82 mm[Hg] Peterson Santiago MD [address] [facility], [address], [place], [address], [facility] [employer] [facility] 03/14/2023 14:08:26 Date Recorded Body height Body mass index (BMI) Body weight Body temperature Heart rate Respiratory rate Pain severity - 0-10 verbal numeric rating [Score] - Reported Systolic blood pressure Diastolic blood pressure Provider Name and Address Organization Details Last Updated DateTime 3 162.56 cm 21.7 kg/m2 83147.0 9 g 96.4 [degF] 73 /min 20 /min 0 140 mm[Hg] 80 mm[Hg] Constanza Balderas RN [facility] [employer] [facility] 3 15:43:02 Social History Question Answer Notes LastModified by Organization Details LastModified Time Tobacco Smoking Status Never Smoker Not Available [facility] 07/27/2022 04:12:16 Do You Have An Advance Directive? No Information not available 11/15/2022 What Is Your Level Of Alcohol Consumption? Occasional [id number] Information not available 07/27/2022 Are You Blind Or Do You Have Difficulty Seeing? No Information not available 05/16/2023 Is Blood Transfusion Acceptable In An Emergency? Yes Information not available 11/15/2022 What Is Your Level Of Caffeine Consumption? Moderate MIGRATION.0301 [id number] Information not available 07/27/2022 How Much Tobacco Do You Chew? None MIGRATION.0301 [id number] Information not available 07/27/2022 What Is Your Code Status? Full Code Information not available 11/15/2022 In The 14 Days Before Symptom Onset, Have You Had Close Contact With A Laboratory-confi rmed COVID-19 While That Case Was Ill? No MIGRATION.030 [id number] Information not available 07/27/2022 In The 14 Days Before Symptom Onset, Have You Had Close Contact With A Person Who Is Under Investigation For COVID-19 While That Person Was Ill? No MIGRATION.030 [id number] Information not available 07/27/2022 Are You Deaf Or Do You Have Serious Difficulty Hearing? No Information not available 05/16/2023 What Type Of Diet Are You Following? REGULAR Low Carb MIGRATION.030 [id number] Information not available 07/27/2022 Which Illicit Or Recreational Drugs Have You Used? None MIGRATION.030 [id number] Information not available 07/27/2022 Do You Or Have You Ever Used E-cigarettes Or Vape? Never Used Electronic Cigarettes MIGRATION.030 [id number] Information not available 07/27/2022 What Is The Highest Grade Or Level Of School You Have Completed Or The Highest Degree You Have Received? 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 1 Information not available 11/15/2022 On Those Days That You Engage In Moderate To Strenuous Exercise, How Many Minutes, On Average, Do You Exercise? 60 Information not available 11/15/2022 Have There Been Any Changes To Your Family Or Social Situation? No MIGRATION.030 [id number] Information not available 07/27/2022 Do You Use Insect Repellent Routinely? No MIGRATION.030 [id number] Information not available 07/27/2022 Where Do You Live? SingleLevelHouse MIGRATION.030 [id number] Information not available 07/27/2022 Do You Have A Medical Power Of Digital Strategy Director? No Information not available 11/15/2022 Do You Have Any Pets? Yes MIGRATION.030 [id number] Information not available 07/27/2022 What Is Your Relationship Status? MIGRATION.030 [id number] Information not available 07/27/2022 Do You Use Your Seat Belt Or Car Seat Routinely? Yes MIGRATION.0301 [id number] Information not available 07/27/2022 Do You Have Smoke And Carbon Monoxide Detectors In Your Home? Yes MIGRATION.0301 [id number] Information not available 07/27/2022 Are You Passively Exposed To Smoke? No MIGRATION.0301 [id number] Information not available 07/27/2022 Do You Or Have You Ever Used Smokeless Tobacco? Never Used Smokeless Tobacco MIGRATION.0301 [id number] Information not available 07/27/2022 Are There Any Smokers In Your House? No MIGRATION.0301 [id number] Information not available 07/27/2022 How Much Tobacco Do You Smoke? No MIGRATION.0301 [id number] Information not available 07/27/2022 Do You Participate In Social Media? Yes MIGRATION.0301 [id number] Information not available 07/27/2022 What Types Of Sporting Activities Do You Participate In? Yuriy Information not available 11/15/2022 Do You Feel Stressed (tense, Restless, Nervous, Or Anxious, Or Unable To Sleep At Night)? [id number] MIGRATION.030 [id number] Information not available 07/27/2022 Do You Use Sunscreen Routinely? No MIGRATION.0301 [id number] Information not available 07/27/2022 Have You Recently Traveled Abroad? No Information not available 11/15/2022 Are You Currently In School? No MIGRATION.030 110782 Information not available 07/27/2022 Sex: Female Functional Status Question Answer Note LastModified by Organizat ion Details LastModified Time Do you have difficulty walking or climbing stairs? No Information not available 05/16/2023 Do you have transportation difficulties? No Information not available 05/16/2023 Are you able to walk? YESWOREST Information not available 05/16/2023 Do you have difficulty doing errands alone? No Information not available 05/16/2023 Are you able to care for yourself? Yes Information n ot available 05/16/2023 Do you have difficulty dressing or bathing? No Information not available 05/16/2023 What is your exercise level? Occasional [id number] Information not available 07/27/2022 Mental Status Question Answer Note LastModified by Organization D etails LastModified Time Do you have difficulty concentrating, remembering or making decisions? No Information no t available 05/16/2023 Family History Relationship Description Onset Age of this Age Resolved Age Notes LastModified by Organization Details LastModified Time Father Blood pressure finding [id number].751 [id number] Not available 07/27/2022 04:31:07 Mother History of cancer metastatic to liver [id number] Not available 07/27/2022 04:31:07 Maternal Aunt Diabetes mellitus [id number] Not available 07/27/2022 04:31:07 Maternal Aunt Epilepsy [id number] Not available 07/27/2022 04:31:07 Medical History Condition Response ANXIETY DISORDER Y MYOCARDIAL INFARCTION Y HYPERTENSION Y HIGH CHOLESTEROL / HYPERLIPIDEMIA Y Gynecological History Statement/Question Response If Post Menopausal, Age at Menopause 1 Date of Last Mammogram 01/28/2023 Date of Last Colonoscopy 09/27/2021 Most Recent Bone Density 06/20/2020 Date of LMP Date of Last Pap Smear Most Recent Mammogram Obstetrics History GPAL:G 0 P 0 0 0 0 Immunizations Vaccine Type Date Status Note Provider Nam e and Address Organization Details Recorded Time COVID-19 Non-[place] Vaccine, Product Unknown 01/20/2021 completed Not Available [facility] 04:39:45 Tdap 11/27/2020 completed Not Available [facility] 07/27/2022 04:39:45 Past Encounters Encounter ID Performer Location Encounter Start Date Encounter Closed Date Diagnosis/Indication Diagnosis SNOMED-CT Code Diagnosis ICD10 Code Diagnosis Note [id number] [facility] [address] 09/22/2020 00:00:00 09/22/2020 16:24:[id number] [address] 09/29/2020 00:00:00 09/29/2020 16:36:[id number] [address] 10/15/2020 00:00:00 10/15/2020 15:43:48 [id number] [facility] [address] [place] [address] 11/27/2020 00:00:00 11/27/2020 17:39:34 [id number] [facility] [address] [place] [address] 01/27/2021 00:00:00 01/27/2021 16:26:54 [id number] [facility] [address] [place] [address] 07/30/2021 00:00:00 07/30/2021 18:10:10 [id number] [facility] [address] [place] [address] 02/01/2022 00:00:00 02/01/2022 15:57:36 [id number] [facility] [address] [place] [address] 02/17/2022 00:00:00 02/17/2022 16:25:24 [id number] [facility] [address] [place] [address] 03/14/2022 00:00:00 03/14/2022 15:04:12 [id number] [facility] [facility] [place] [address] 05/03/2022 00:00:00 05/03/2022 16:00:29 [id number] [facility] [address] [place] [address] 08/05/2022 10:17:28 08/05/2022 11:15:13 Essential hypertension 83747417 I10 Amlodipine 10 mg po daily. Upper resp iratory infection 16802935 J06.9 antihistam ine otc. Lesion of oral mucosa 10 57744296 388689 K13.70 salt water garlge or listerine bid for 10 days. FU with dentist. [id number] Constanza Johnson NP [address] [address] 11/15/2022 16:01:53 11/15/2022 16:55:28 Hyperlipidemia 10908157 E78.5 Atorvastat in 80 mg po nightly. Essential hypertension 03816776 I10 Amlodipine 10 mg po daily.< 2 gm sodium diet. Osteoporosis 97258044 M8 1.0 Alendronat e 70 mg po daily. Anxiety 40627878 F41.9 Lorazepam 1 mg, 1/2 tab po bid prn.UDS 11/15/22 Varicose v eins of lower extremity 43937499 I83.93 referring to vascular. [id number] Peterson Santiago MD [address] [address] 03/14/2023 13:57:50 03/14/2023 14:52:36 Nasal congestion 18474757 R09.81 Muscle pain 49098044 M79 .10 Upper resp iratory infection 72342911 J06.9 [id number] Constanza Johnson NP [address] [address] 05/16/2023 15:27:13 05/16/2023 16:08:19 Hyperlipidemia 07314878 E78.5 Atorvastat in 80 mg po nightly. Essential hypertension 86053180 I10 Amlodipine 10 mg po daily.< 2 gm sodium diet. Osteoporosis 14188189 M8 1.0 Alendronat e 70 mg po daily. Anxiety 47908912 F41.9 Lorazepam 1 mg, 1/2 tab po bid prn.UDS 11/15/22 Varicose v eins of lower extremity 76222534 I83.93 Referring to vascular. Loss of hair 883093483 L 65.9 Will check TSh. History of myocardial infarction 451797411 I25.2 Seeing cardiology . Health Concerns Section Related Observation LastModified by Organization Detai ls LastModified Time None Recorded Concern Status LastModified by Organization Details LastModified Time None Recorded Advance Directives Directive N: Payers Encounter Date Sequence Insurance Name Policy Number Policy Marcano Covered Member ID Marcano Member ID Guarantor Name 08/05/[address] [facility] [id number] Geovanna Castañedaird [id number] Geovanna Lambird 11/15/[address] [facility] [id number] Geovanna Castañedaird [id number] Geovanna Lambird 03/14/[address] [facility] (MEDICARE REPLACEMENT/ ADVANTAGE - HMO) [id number] Geovanna Castañedaird [id number] Geovanna Lambird 05/16/[address] [facility] (MEDICARE REPLACEMENT/ ADVANTAGE - HMO) [id number] Geovanna Castañedaird [id number] Geovanna Lambird Notes Date Note Type Note Provider Name and Address Organization Details Recorded Time 08/05/2022 text/html Pt. here for evaluation of mouth issue. Roof of mouth is very sore. This started on Monday. She is wondering if it is due to having her teeth cleaned on . She has used warm salt water, and it has been helping some. She has never had anything else like this before. She reports having a bad tooth on the right side that needs to be pulled; no recent antibiotic use. She reports having allergy symptoms of runny nose, postnasal drip, and sinus pressure; states it is not too bad. Has been sucking on small mints. Constanza Johnson NP [address], [place], [address], [employer] 08/05/2022 11:12:03 11/15/2022 text/html Here for 6 mo check up. Anxiety- lorazepam working well. No concerns.Vit d- vit replacement otc po daily.Lipid- stable. 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 Constanza Johnson NP [address], [place], [address], [employer] 11/15/2022 16:46:19 03/14/2023 text/html ACV: C/o cough, congestion, fatigue, headache for last 1 day. 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 Pt had her covid vaccines. Peterson Santiago MD [address], [place], [address], [employer] [facility] 03/14/2023 14:22:44 05/16/2023 text/html Here for 6 mo check up. Anxiety- lorazepam working well. No concerns.Vit d- vit replacement otc po daily.Lipid- stable. 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 Supposed to wear sharon hose, [place] next month on legs for varicose veins. Hx [place] Constanza Johnson, [place] [address] [facility], [address], [place], [address], [facility] [employer] [facility] 05/16/2023 16:11:05 OBGyn Episode No OBEpisode recorded.
--- OUTSIDE RECORDS SUMMARY | 2024-09-11 16:07 | XMS_ITS | Data Portability ---
Author Organization [facility] [place] Address [address] [place] [address] Assessment Encounter Date Assessment Date Assessment LastModified by Organization Details LastModified Time 05/28/2020 05/28/2020 Discussed exam findings includiing slightly narrowed introitus and atrophy. discussed treatment with estrace cream, pt desires, discussed usage, RBA. nightly for a month, then 3x/week discussed lubricant, foreplay, going slowly FU 4-5 weeks. [email or web address] Not available 05/28/2020 11:24:37 07/01/2020 07/01/2020 continue estrace cream per finger 3x per week. call if needs further refills, has one OP noted FU WWE [email or web address] Not available 07/01/2020 17:12:14 06/01/2023 06/01/2023 Annual gynecological exam performed. Patient will come back in a year unless there are new symptoms. [email or web address] Not available 06/01/2023 15:08:03 Plan of Treatment Reminders Order Date Submit Date Provider Last Modified By Organization Details Last Modified Time Details Appointments None recorded. Lab None recorded. Referral None recorded. Procedures None recorded. Surgeries None recorded. Imaging None recorded. Medication Orders estradiol 0.01% (0.1 mg/gram) vaginal cream 2023 024 PANORA [facility][id number], [address] [facility], [place], [place], [id number], 17:46:14 progesteron e micronized 200 mg capsule 2023 024 tabner [facility] #[id number], [address] [facility], [place], [place], [id number], 4 17:56:13 Estrace 0.01% (0.1 mg/gram) vaginal cream 2019 020 elaine [facility][id number], [address] [facility], [place], [place], [id number], 4 15:46:57 Patient TargetsNo targets recorded. Patient InstructionsNo instructions recorded. Reason for Referral None Reported. Problems Name Problem SNOMED Code Status Onset Date Resolution Date Notes Provider Name and Address Organization Details Recorded Time Hypertensiv e disorder 59069923 Active 2019 Rachel Goldman MD [address], [place], [address], [facility] 0 10:11:52 Hypercholes terolemia 76822191 Active 2019 Rachel Goldman MD [address], [place], [address], [facility] 0 10:12:00 Coronary arterioscle rosis 10509454 Active 2019 Rachel Goldman MD [address], [place], [address], [facility] 0 10:12:06 Atrophic vaginitis 13815647 Active 2019 Rachel Goldman MD [address], [place], [address], [facility] 0 10:33:17 Osteoporosi s 48369872 Active 2020 dexa 05/2020os teoporos is of hip, started fosamax Rachel Goldman MD [address], [place], [address], [facility] 1 17:08:21 Hormone replacement therapy Active 2023 Megan Casanova null, [facility] 17:54:05 Problem Notes None recorded. Procedures Surgical History Date Name Laterality Status Provider Name and Address Organization Details Recorded Time 023 Date of Last Mammogram completed Megan Edilberto [facility] 02/22/2024 16:31:09 000 total abdominal hysterectomy completed Rachel Goldman MD [address], [place], [address], [facility] 05/28/2020 10:33:44 [address] [facility] 05/28/2020 10:05:08 981 delivery completed [facility] 05/28/2020 10:05:32 979 delivery completed [facility] 05/28/2020 10:05:22 percutaneous coronary intervention of right coronary artery completed GEETHA Mortensen [address], [place], [address], [facility] 06/01/2023 15:18:02 cardiac ablation using fluoroscopy guidance completed GEETHA Mortensen [address], [place], [address], [facility] 06/01/2023 15:18:12 Imaging Results None recorded. Procedure Notes None recorded. Medical Equipment None Reported. Allergies No known drug allergies Medications Name Sig Start Date Stop Date Status Note LastModified by Organization Details LastModified Time atorvastati n 80 mg tablet 04/01 completed Not Available Not Available Not Available prednisone 10 mg tablet 06/01 completed Not Available Not Available Not Available doxycycline hyclate 100 mg capsule TAKE 1 CAPSULE BY MOUTH DAILY 02/21 completed Not Available Not Available Not Available fluconazole 150 mg tablet TAKE 1 TABLET BY MOUTH AFTER ANTIBIOTI C IF YEAST INFECTION IS PRESENT 02/21 completed Not Available Not Available Not Available isosorbide mononitrate ER 30 mg tablet,exte nded release 24 hr 06/01 completed Not Available Not Available Not Available alendronate 70 mg tablet TAKE 1 TABLET BY MOUTH EVERY WEEK active Not Available Not Available No t Available ciprofloxac in 250 mg tablet TAKE 1 TABLET BY MOUTH EVERY 12 HOURS FOR 3 DAYS 06/01 completed Not Available Not Available Not Available amlodipine 5 mg tablet 05/28 completed Not Available Not Available Not Available ciprofloxac in 500 mg tablet TAKE 1 TABLET BY MOUTH EVERY 12 HOURS 02/21 completed Not Available Not Available Not Available sulfamethox azole 800 mg-trimetho prim 160 mg tablet TAKE 1 TABLET BY MOUTH EVERY 12 HOURS 02/21 completed Not Available Not Available Not Available alprazolam 0.5 mg tablet TAKE 1 TABLET BY MOUTH BEFORE LEAVING YOUR HOUSE. TAKE A 2ND TABLET ON ARRIVAL TO OFFICE 04/01 completed Not Available Not Available Not Available lorazepam 0.5 mg tablet TK 1 T PO BID PRN 05/28 completed Not Available Not Available Not Available amlodipine 10 mg tablet TAKE 1 TABLET BY MOUTH DAILY active Not Available Not Available No t Available polymyxin B sulfate 10,000 unit-trimet hoprim 1 mg/mL eye drops INT 1 GTT INTO OS Q 6 H 05/28 completed Not Available Not Available Not Available lorazepam 1 mg tablet TAKE 1/2 TABLET BY MOUTH TWICE DAILY NEEDED FOR ANXIETY active Not Available Not Available No t Available estradiol 0.01% (0.1 mg/gram) vaginal cream INSERT 1 GRAM VAGINALLY AT BEDTIME X 30 DAYS active Not Available Not Available No t Available methylpredn isolone 4 mg tablets in a dose pack FOLLOW PACKAGE DIRECTION S 02/21 completed Not Available Not Available Not Available rosuvastati n 40 mg tablet TAKE 1 TABLET BY MOUTH DAILY active Not Available Not Available No t Available nitrofurant oin monohydrate /macrocryst als 100 mg capsule TAKE 1 CAPSULE BY MOUTH EVERY 12 HOURS WITH FOOD OR A MEAL FOR 5 DAYS 02/21 completed Not Available Not Available Not Available aspirin 02/21 completed Not Available Not Available Not Available amlodipine 02/21 completed Not Available Not Available Not Available Brilinta 60 mg tablet 06/01 completed Not Available Not Available Not Available Vitals Date Recorded Body height Body mass index (BMI) Body weight Systolic blood pressure Diastolic blood pressure Provider Name and Address Organization Details Last Updated DateTime 06/01/2023 154.94 cm 24.5 kg/m2 19297.29 g 129 mm[Hg] 82 mm[Hg] Ligia Barrydenton [facility] 4 15:13:15 Date Recorded Body height Body mass index (BMI) Body weight Systolic blood pressure Diastolic blood pressure Provider Name and Address Organization Details Last Updated DateTime 02/22/2024 154.94 cm 23.8 kg/m2 82927.64 g 106 mm[Hg] 72 mm[Hg] Megan [facility] 4 16:27:57 Date Recorded Body height Body mass index (BMI) Body weight Systolic blood pressure Diastolic blood pressure Provider Name and Address Organization Details Last Updated DateTime 04/01/2024 154.94 cm 24.6 kg/m2 15136.01 g 124 mm[Hg] 77 mm[Hg] [facility] 15:53:52 Date Recorded Body height Body mass index (BMI) Body weight Systolic blood pressure Diastolic blood pressure Provider Name and Address Organization Details Last Updated DateTime 05/28/2020 154.94 cm 23.8 kg/m2 59513.64 g 149 mm[Hg] 87 mm[Hg] [facility] 0 10:04:16 Date Recorded Body height Body mass index (BMI) Body weight Systolic blood pressure Diastolic blood pressure Provider Name and Address Organization Details Last Updated DateTime 07/01/2020 154.94 cm 23.4 kg/m2 25032.45 g 129 mm[Hg] 78 mm[Hg] [facility] 1 16:22:30 Social History Question Answer Notes LastModified by Organizat ion Details LastModified Time Tobacco Smoking Status Never Smoker Tracey jean baptiste [facility] 05/28/2020 10:10:16 In The 14 Days Before Symptom Onset, Have You Had Close Contact With A Laboratory-confirm ed COVID-19 While That Case Was Ill? No Information n ot available 02/22/2024 In The 14 Days Before Symptom Onset, Have You Had Close Contact With A Person Who Is Under Investigation For COVID-19 While That Person Was Ill? No Information not available 02/22/2024 Have You Been To An Area Known To Be High Risk For COVID-19? No Information not available 02/22/2024 Sex: Unknown Functional Status None recorded. Mental Status None recorded. Family History Relationship Description Onset Age of this Age Resolved Age Notes LastModified by Organization Details LastModified Time Mother Anemia [email or web address] Not available 10:08:21 Mother Diabetes mellitus [email or web address] Not available 2019 10:09:06 Maternal Aunt Anemia [email or web address] Not avail able 05/28/2020 10:08:21 Maternal Aunt Carcinoma in situ of breast [email or web address] Not available 2019 10:08:40 Maternal Aunt Diabetes mellitus smcaley Not available 2019 10:09:56 Paternal Grandmother Carcinoma in situ of colon smcaley Not available 2019 10:08:54 Father Hypercholest erolemia smcaley Not available 2019 10:09:19 Father Hypertensive disorder smcaley Not available 2019 10:09:31 Brother Hypercholest erolemia smcaley Not available 2019 10:09:19 Brother Hypertensive disorder smcaley Not available 2019 10:09:31 Maternal Uncle Diabetes mellitus smcaley Not available 2019 10:10:01 Medical History Condition Response Allergies (Food, seasonal, environmental ) N Other N Breast Cancer N Drug/Latex Allergies/Reactions N Blood Transfusion N Lung Disease N Dermatologic Disorders N Defects or Inherited Disease N Breast Problem N Gestational Diabetes N Hematologic disorders N Anesthesia Complications N History of STI N Deep Vein Thrombosis N Polycystic ovary syndrome N Anxiety Disorder N Autoimmune disease N Arthritis N Infertility N Polyps N Acid Reflux (GERD) N History of abnormal pap N Cancer N Stroke N Varicosities Y Neurologic/Epilepsy N Endometriosis N High Cholesterol Y Headaches N Fibromyalgia N Kidney Disease N Heart Problems N Kidney or Bladder Problems N Thyroid Problems N GI Problems N Eating Disorder N Anemia N Art (IVF or FET) N Psychiatric Illness N Ovarian Cancer N Diabetes N Pulmonary (TB, Asthma) N Hepatitis/Liver Disease N Eczema N Urinary Tract Infection N Abuse/Domestic Violence N Asthma N Trauma/Violence N Depression/ depression N Heart Disease Pre-Eclampsia N Hypertension Y Osteoporosis Y Thrombophilias N Gynecological History Statement/Question Response Menses Monthly N HPV Vaccine N Sexual Problems? Y Current Control Method Hysterectom y Date of Last Mammogram 05/29/2022 Sexually Active? Y Obstetrics History GPAL:G 2 P 2 0 0 2 Type Value Full Term 2 Living 2 Total 2 Past Encounters Encounter ID Performer Location Encounter Start Date Encounter Closed Date Diagnosis/Indication Diagnosis SNOMED-CT Code Diagnosis ICD10 Code Diagnosis Note [id number] Rachel Goldman MD [place] [address],[place] [address] 05/28/2020 09:53:47 05/28/2020 11:30:07 Atrophic vaginitis 39374501 N95.2 Dyspareunia 00119210 N94 .10 [id number] Rachel Goldman MD [place] [address],[place] [address] 07/01/2020 16:05:42 07/02/2020 12:19:23 Atrophic vaginitis 36788648 N95.2 [id number] GEETHA Mortensen [place] [address],[place] [address] 06/01/2023 15:04:59 06/01/2023 16:12:27 Gynecologic examination 44376361 Z01.419 WWEh/o RADHA, BSO for non-cancer ous indication sno further papsmammog liana/colono scopy/Dexa UTD/PCPon alendronat e managed by [facility] in 1 yr or sooner if needed veg based moisturize r routine discussed - use as lubricatio n with ICrevaree hyaluronic acid vaginal suppositor ies 2-3 times per week Take Calcium with Vitamin D daily. Do monthly self breast exams. It is advised to get annual flu shot in the fall and she could obtain at [facility] or [facility] take care clinic. If you haven't received the Tdap vaccine in the last 10 years you should obtain one as well. Have mammogram yearly, bone density every 2-3 years and colonoscop y every 5-10 years depending on findings and history. Engage in daily exercise of low impact aerobic exercise 45-60 minutes 4-5 times weekly. Avoid tobacco and illicit drugs. This lifestyle behavior pattern will lead to less health conditions and longer life span. If BMI greater than 25 dietary consult advised. Questions have been answered. Patient appears to understand instructio ns, but if you have any further questions call or respond to this email Melanocytic nevus [id number] 001 D22.9 Recommende d dermatolog ist consult for skin checkencou raged to check insurance to find derm that is covered - can send referral if needed [id number] Shaheen Kim MD [place] [address] [address] 02/22/2024 16:19:50 02/22/2024 17:37:31 Hormone replacement therapy 557708853 Z79.890 Postcoital bleeding 4888 0000 N93.0 . 63-year-ol d female with postcoital bleeding. She has spotting after she has intercours e. There is a little bit of pain. The pain is at the opening of the vagina. Patient is status post hysterecto my. Pelvic exam- the vagina appears totally normal after speculum exam. The opening has a fissure the right side of the posterior introitus. We talked about treatment. We talked about lubricatio n and vaginal estrogen cream to allow to heal. We talked about the risks, benefits, and alternativ es to vaginal estrogen cream. We talked about instructio ns and precaution s. She will return in 1 month. [id number] Shaheen Kim MD [place] [address] [address] 04/01/2024 15:32:48 04/01/2024 17:44:14 Atrophic vulva 261759915 N90.5 this patient is a 64-year-ol d female presents for follow-up on postcoital bleeding, fissure at the posterior introitus /Fourchett e. She has been treated with estradiol cream for 1 month. She reports improved symptoms. We agreed to treat for 1 more month. We talked about lubricants . I spent more than 20 minutes in the patient's care. We talked about symptomato logy, treatment, further treatment, follow-up. Talked about pain. She was examined. The vulva appears better. Health Concerns Section Related Observation LastModified by Organization Detai ls LastModified Time None Recorded Concern Status LastModified by Organization Details LastModified Time None Recorded Advance Directives Directive None Recorded Payers Encounter Date Sequence Insurance Name Policy Number Policy Marcano Covered Member ID Marcano Member ID Guarantor Name 05/28/2020 1 [facility] [id number] Geovanna M Lambird [id number] Geovanna Lambird 07/01/2020 1 [facility] [id number] Geovanna M Lambird [id number] Geovanna Lambird 06/01/2023 1 [facility] (MEDICARE REPLACEMENT/A DVANTAGE - HMO) [id number] Geovanna M Lambird [id number] Geovanna Lambird 02/22/2024 1 [facility] (MEDICARE REPLACEMENT/A DVANTAGE - HMO) [id number] Geovanna M Lambird [id number] Geovanna Lambird 04/01/2024 1 [facility] (MEDICARE REPLACEMENT/A DVANTAGE - HMO) [id number] Geovanna M Lambird [id number] Geovanna Lambird Notes Date Note Type Note Provider Name and Address Organization Details Recorded Time 05/28/2020 text/html Pt is a 60yo here complaining of pain with intercourse. Menopause 40yo with RADHA/BSO, was on Premarin until a couple years ago. Had not had sex in 2 years and had sex 3 weeks ago. No bleeding, but terrible pain inside and out with penetration. Additional concerns: mammo next month. sexually active:see above contraception:hyst Last annual exam: does with PCP Rachel Goldman MD [address], [place], [address], [facility] 05/28/2020 11:25:08 07/01/2020 text/html Here for FU of atrophy, dyspareunia. Started estrace cream 5 weeks ago. Has not had sex since, but states the area feels much better and less irritated. Also wanted us to know had dexa, osteoporosis of hip, started alendronate last month. Rachel Goldman MD [address], [place], [address], [facility] 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 rted bypatient.Menopausa l Symptoms:no menopausal symptoms; normal vaginal lubrication Vaginal Bleeding:history of menopause having occurred; no history of post menopausal bleeding Urinary Symptoms:no hematuria; no incontinence; no nocturia; no urinary frequency Vulva:no genital lesion; no vulvar atrophy Vagina:normal vaginal discharge; no vaginal atrophy Breast:no breast lump; no nipple discharge; no breast pain Sexual Complaints:no sexual complaints Psychological Symptoms:no depression; no anxiety Preventive Measures:encourage regular mammograms starting age 40; encourage self breast examination; encourage regular exercise; encourage no tobacco use; mammogram performed within the past year; history of recent colonoscopyNotes:h/ o RAHDA, BSO at 40 for ovarian cyst per pt - non-cancerous indicationsno h/o abnormal paps prior to hystmammogram 1-2 months ago - normal per ptcolonoscopy UTDdexa UTD - on alendronate managed by PCP GEETHA Mortensen [address], [place], [address], [facility] 06/01/2023 16:03:30 02/22/2024 text/html . 63-year-old female with postcoital bleeding. She has spotting after she has intercourse. There is a little bit of pain. The pain is at the opening of the vagina. Patient is status post hysterectomy. Pelvic exam- the vagina appears totally normal after speculum exam. The opening has a fissure the right side of the posterior introitus. We talked about treatment. We talked about lubrication and vaginal estrogen cream to allow to heal. We talked about the risks, benefits, and alternatives to vaginal estrogen cream. We talked about instructions and precautions. She will return in 1 month. Shaheen Kim MD [address], [place], [address], [facility] 02/22/2024 22:29:46 04/01/2024 text/html this patient is a 64-year-old female presents for follow-up on postcoital bleeding, fissure at the posterior introitus /Fourchette. She has been treated with estradiol cream for 1 month. She reports improved symptoms. We agreed to treat for 1 more month. We talked about lubricants. I spent more than 20 minutes in the patient's care. We talked about symptomatology, treatment, further treatment, follow-up. Talked about pain. She was examined. The vulva appears better. Shaheen Kim MD [address], [place], [address], [facility] 04/01/2024 16:48:55 OBGyn Episode Ob Episode Information Episode Created Date Number of Fetuses Patient Bloodtype Patient rh Status Prepregnancy Weight lbs Domestic Partner Domestic Partner Phone Father Name Director Of Anesthesia Services Status 05/28/20 20 1 CLOSED Fetus Data First Name Last Name Admitted to NICU Weight (g) Sex Living Outcome Pediatric Complications Fetus ID Race Codes Race Delivery Type M [id number] Primary Franco Calculation Initial Franco Date Initial Exam Date Initial Exam Provider Initial Ultrasound Date Last Menstrual Period Date Ultra Sound Weeks Gestation 0 Eighteen To Twenty Week Franco Update Ultra Sound Date Fundal Height At Umbil Quickening Date Ultra Sound Latest Weeks Gestation Final Franco Confirmed By Final Franco Confirmed Date Final Franco Date Ultra Sound Latest Days Gestation 0 0 Menstrual History Last Menstrual Date Menses Monthly On Bcp Conception Prior Menses Frequency Hcg Plus Date Menarche Onset Age Delivery Information Delivery Date Delivery Type Labor Anesthesia Weeks Gestation Incision Type Labor Labor Length Hrs Delivered By Post Complications Tubal Sterilization Discharge Date Comments 1 Discharge Information Feeding Method Contraceptive Method Maternal HG B and HCT Levels Ob Episode Information Episode Created Date Number of Fetuses Patient Bloodtype Patient rh Status Prepregnancy Weight lbs Domestic Partner Domestic Partner Phone Father Name Director Of Anesthesia Services Status 05/28/20 20 1 CLOSED Fetus Data First Name Last Name Admitted to NICU Weight (g) Sex Living Outcome Pediatric Complications Fetus ID Race Codes Race Delivery Type M [id number] Primary Franco Calculation Initial Franco Date Initial Exam Date Initial Exam Provider Initial Ultrasound Date Last Menstrual Period Date Ultra Sound Weeks Gestation 0 Eighteen To Twenty Week Franco Update Ultra Sound Date Fundal Height At Umbil Quickening Date Ultra Sound Latest Weeks Gestation Final Franco Confirmed By Final Franco Confirmed Date Final Franco Date Ultra Sound Latest Days Gestation 0 0 Menstrual History Last Menstrual Date Menses Monthly On Bcp Conception Prior Menses Frequency Hcg Plus Date Menarche Onset Age Delivery Information Delivery Date Delivery Type Labor Anesthesia Weeks Gestation Incision Type Labor Labor Length Hrs Delivered By Post Complications Tubal Sterilization Discharge Date Comments 9 Discharge Information Feeding Method Contraceptive Method Maternal HG B and HCT Levels
--- OUTSIDE RECORDS SUMMARY | 2024-09-11 16:08 | XMS_ITS | Encounter Summary ---
Author Organization [facility] Facility Care Team Providers Care Heel Cover Softener Name Role Phone Kathya De La Rosa MD Primary Care Provider [phone] Michael Browning MD Unavailable [phone] Constanza Johnson NP Primary Care Provider + Encounter Details Date Type Department Care Team (Latest Contact Info) Description 04/20/2015 Orders Only [facility] ProviderYamel MD [address] [place] [address] Social History Tobacco Use Types Packs/Day Years Used Date Smoking Tobacco: Never Assessed Comments Unknown Sex and Gender Information Value Date Recorded Sex Assigned at Not on file Legal Sex Female 1:14 AM RESEARCH PSYCHOLOGIST Gender Identity Not on file Sexual Orientation Not on file documented as of this encounter Plan of Treatment Not on file documented as of this encounter Procedures Procedure Name Priority Date/Time Associated Diagnosis Comments SCAN - LABS 06/23/2016 12:00 AM RESEARCH PSYCHOLOGIST documented in this encounter Results * SCAN - LABS (06/23/2016 12:00 AM RESEARCH PSYCHOLOGIST) Narrative 06/23/2016 12:00 AM RESEARCH PSYCHOLOGIST Ordered by an unspecified provider. Historical Provider Final Res ult documented in this encounter Visit Diagnoses Not on filedocumented in this encounter Care Teams Heel Cover Softener Relationship Specialty Start Date End Date Kathya De La Rosa MD [address] [facility] [address] [place] [address] PCP - General 05/28/09 09/15/21 Constanza Johnson NP [address] [employer] [address] [place] [address] PCP - General Nurse Practitioner 09/16/21 Michael Browning MD [address] [employer] [address] [place] [address] Consulting Physician Cardiovascular Disease 04/15/19 documented as of this encounter
--- OUTSIDE RECORDS SUMMARY | 2024-09-11 16:08 | XMS_ITS | Encounter Summary ---
Author Organization [facility] Facility Care Team Providers Care Health Facilities Surveyor Name Role Phone Kathya De La Rosa MD Primary Care Provider [phone] Michael Browning MD Unavailable [phone] Constanza Johnson NP Primary Care Provider + Encounter Details Date Type Department Care Team (Latest Contact Info) Description 02/15/2017 Orders Only [facility]INCON[facility] ProviderYamel MD [address] [place] [id number] Social History Tobacco Use Types Packs/Day Years Used Date Smoking Tobacco: Never Assessed Comments Unknown Sex and Gender Information Value Date Recorded Sex Assigned at Not on file Legal Sex Female 1:14 AM 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 Historical Provider Final Res ult documented in this encounter Visit Diagnoses Not on filedocumented in this encounter Care Teams Health Facilities Surveyor Relationship Specialty Start Date End Date Kathya De La Rosa MD [address] [facility] [address] [place] [address] PCP - General 05/28/09 09/15/21 Constanza Johnson NP [address] [place] [id number] PCP - General Nurse Practitioner 09/16/21 Michael Browning MD [address] [place] [id number] Consulting Physician Cardiovascular Disease 04/15/19 documented as of this encounter
== END 2024-09-11 14:51 | disposition home or self-care (01) ==
LOC: ANHIMG 14:51
PROVIDERS: PCP Nurse Practitioner Family; Visit Provider Nurse Practitioner Family
DX: Z12.31 Encounter for screening mammogram for malignant neoplasm of breast (principal); M81.0 Age-related osteoporosis without current pathological fracture
CPT/HCPCS: 77063; 77067; 77080